=== PATIENT | male | born 1990 | race Caucasian/White ===

== ENCOUNTER 2017-01-07 22:30 | Emergency (ER) | payer SELFPAY ==
[~2017-01-07] VITALS: Ht 180.3 cm; Wt 59.0 kg
[2017-01-08] MEDS ORDERED: KETOROLAC 60 MG/2 ML VIAL (J1885) As Ordered ONE (00:07)
[2017-01-08] MEDS ORDERED: KETOROLAC 60 MG/2 ML VIAL (J1885) IM ONE (00:15)
[2017-01-08 00:35] VITALS: BP 120/67
[2017-01-08] MEDS ORDERED: ACETAMINOPHEN 325 MG/10.15 ML UDC PO ONE (00:45)
== END 2017-01-08 00:46 | disposition home or self-care (01) ==
LOC: M ED 23:33
DX: J02.9 Acute pharyngitis, unspecified (principal); B34.9 Viral infection, unspecified; F17.210 Nicotine dependence, cigarettes, uncomplicated
CPT/HCPCS: 96372; 99282; J1885

== ENCOUNTER 2017-05-30 10:16 | Emergency (ER) | payer MEDICAID, SELFPAY ==
[~2017-05-30] VITALS: Ht 180.3 cm; Wt 61.1 kg
[2017-05-30 10:16] VITALS: BP 100/66
[2017-05-30] MEDS ORDERED: CLEO300C2 PO (10:51)
[2017-05-30] MEDS ORDERED: NAPR500T PO (10:51)
[2017-05-30] MEDS ORDERED: CLINDAMYCIN 150 MG CAP PO ONE (11:00)
[2017-05-30] MEDS ORDERED: KETOROLAC 60 MG/2 ML VIAL (J1885) IM ONE (11:00)
== END 2017-05-30 11:32 | disposition home or self-care (01) ==
LOC: M ED 10:16
DX: L02.511 Cutaneous abscess of right hand (principal); Z72.0 Tobacco use
CPT/HCPCS: 96372; 99282; J1885

== ENCOUNTER 2017-12-20 02:57 | Emergency (ER) | payer SELFPAY | END 2017-12-20 04:16 | disposition left against medical advice (07) | LOC: M ED 02:57 | DX: Z53.29 Procedure and treatment not carried out because of patient's decision for other reasons (principal) ==

== ENCOUNTER 2019-07-13 19:18 | Emergency (ER) | payer SELFPAY ==
[~2019-07-13] VITALS: Ht 180.3 cm; Wt 61.4 kg
[~2019-07-13 19:18] MED LIST: CLEO300C2 PO; NAPR-837 PO
[2019-07-13] MEDS ORDERED: ALBUTEROL SULFATE 2.5 MG/0.5 ML INH NEB SOLN NEB ONE (20:00)
[2019-07-13] MEDS ORDERED: LIDO1CRE2 TOP (20:35)
[2019-07-13] MEDS ORDERED: IBUP-1022 PO (20:35)
[2019-07-13] MEDS ORDERED: PROAAER10 INH (20:38)
[2019-07-13] MEDS ORDERED: LIDOCAINE 5% (LIDODERM) PATCH TD ONE (20:45)
[2019-07-13] MEDS ORDERED: NORCO 5/325MG TABLET (BULK FOR ED) PO ONE (20:45)
[2019-07-13 20:55] VITALS: BP 115/59
[2019-07-13] MEDS ORDERED: **NOTE PATIENT COMMENT** MISC XX SCH (21:00)
--- NOTE | 2019-07-14 08:34 | REP ---
Bilateral ribs four views: I suspect there is a nondisplaced fracture of the left tenth rib anterolaterally. This should be correlated with clinical point tenderness. No other rib fractures or other rib abnormalities are identified. PA chest: There is no pneumothorax, hemothorax or pulmonary contusion. The lung yap are clear. Cardiac size is normal. The roldan, mediastinum, skeletal structures are unremarkable. The left tenth rib fractures, better visualized on the rib series. Electronically Signed by Jorgito Coelho MD 07/14/2019 08:25 A
[2019-07-14] MEDS ORDERED: **NOTE PATIENT COMMENT** MISC XX ONE (08:45)
== END 2019-07-13 20:57 | disposition home or self-care (01) ==
LOC: M ED 19:18
DX: S20.219A Contusion of unspecified front wall of thorax, initial encounter (principal); R07.89 Other chest pain; W50.0XXA Accidental hit or strike by another person, initial encounter; Y92.9 Unspecified place or not applicable; Y93.9 Activity, unspecified; Y99.9 Unspecified external cause status; J45.909 Unspecified asthma, uncomplicated; F17.200 Nicotine dependence, unspecified, uncomplicated

== ENCOUNTER 2019-08-12 14:48 | Emergency (ER) | payer SELFPAY ==
[~2019-08-12] VITALS: Ht 180.3 cm; Wt 61.4 kg
[~2019-08-12 14:48] MED LIST changes: +IBUP-1022 PO; +LIDO1CRE2 TOP; +PROAAER10 INH
[2019-08-12] MEDS ORDERED: ACETAMINOPHEN (14:55)
[2019-08-12] MEDS ORDERED: IBUP-1022 PO ×2 (16:04→16:31)
[2019-08-12] MEDS ORDERED: LIDO1CRE2 TOP (16:31)
[2019-08-12 16:42] VITALS: BP 122/65
== END 2019-08-12 16:42 | disposition home or self-care (01) ==
LOC: M ED 14:48
DX: S22.32XD Fracture of one rib, left side, subsequent encounter for fracture with routine healing (principal); X58.XXXD Exposure to other specified factors, subsequent encounter; Y92.9 Unspecified place or not applicable; Y93.9 Activity, unspecified; Y99.9 Unspecified external cause status; Z76.0 Encounter for issue of repeat prescription; J45.909 Unspecified asthma, uncomplicated; F17.200 Nicotine dependence, unspecified, uncomplicated; Z79.899 Other long term (current) drug therapy

== ENCOUNTER 2020-07-10 19:41 | Emergency (ER) | payer SELFPAY ==
[~2020-07-10] VITALS: Ht 180.3 cm; Wt 58.0 kg
[~2020-07-10 19:41] MED LIST changes: +ACETAMINOPHEN
[2020-07-10] MEDS ORDERED: FLUORESCEIN OPHTH 1 MG STRIP OU ONE (22:15)
[2020-07-10] MEDS ORDERED: TETRACAINE 0.5% OPHTH SOLN 4ML OU ONE (22:15)
[2020-07-10] MEDS ORDERED: CIPR0.3S6 OD (22:33)
[2020-07-10] MEDS ORDERED: BOOSTRIX/ADACEL VACCINE (DIPHTH/PERTUSS/ACELL/TETANUS) 0.5ML SYR IM ONE (22:45)
[2020-07-10] MEDS ORDERED: CIPROFLOXACIN 0.3% OPHTH SOLN 2.5ML OD ONE (22:45)
[2020-07-10 22:52] VITALS: BP 116/82
== END 2020-07-10 22:55 | disposition home or self-care (01) ==
LOC: M ED 19:41
DX: S05.91XA Unspecified injury of right eye and orbit, initial encounter (principal); T15.01XA Foreign body in cornea, right eye, initial encounter; X58.XXXA Exposure to other specified factors, initial encounter; Y92.89 Other specified places as the place of occurrence of the external cause; J45.909 Unspecified asthma, uncomplicated; F17.210 Nicotine dependence, cigarettes, uncomplicated

== ENCOUNTER 2020-12-23 21:43 | Emergency (ER) | payer SELFPAY ==
[~2020-12-23] VITALS: Ht 180.3 cm; Wt 60.0 kg
[2020-12-23 21:43] VITALS: BP 121/75
[~2020-12-23 21:43] MED LIST changes: +CIPR0.3S6 OD
== END 2020-12-24 00:12 | disposition left against medical advice (07) ==
LOC: M ED 21:43
DX: Z53.21 Procedure and treatment not carried out due to patient leaving prior to being seen by health care provider (principal)

== ENCOUNTER 2021-01-03 22:25 | Emergency (ER) | payer MEDICAID, SELFPAY ==
[~2021-01-03] VITALS: Ht 154.9 cm; Wt 58.9 kg
[2021-01-03] MEDS ORDERED: EPIN11.7 IH (22:37)
[2021-01-03] MEDS ORDERED: dexameTHASONE 20MG/5ML VIAL (J1100 PER 1MG) IV ONE (22:50)
[2021-01-03] MEDS ORDERED: NS 1,000 ML IV ONE (22:50)
[2021-01-03] MEDS: IPRATROPIUM 0.5MG/ALBUTEROL 2.5MG INH SOL UD 3ML (DUONEB) NEB PRN ×3 (22:57→23:07)
[2021-01-03 23:02] LABS: BASO % 0.3 % (0.0-1.0); EOS # 0.7 10^3/uL (0.0-0.5); EOS % 6.7 % (0.0-3.0); HEMATOCRIT 48.9 % (42.0-52.0); HEMOGLOBIN 16.8 g/dl (13.5-17.5); LYMPH # 2.7 10^3/uL (1.5-5.0); LYMPH % 25.2 % (24.0-44.0); MEAN CORPUSCULAR HEMOGLOBIN 29.9 pg (27.0-33.0); MEAN CORPUSCULAR HGB CONC 34.4 g/dl (32.0-36.5); MEAN CORPUSCULAR VOLUME 87.2 fl (80.0-96.0); MONO # 0.7 10^3/uL (0.0-0.8); MONO % 6.3 % (2.0-8.0); NEUTROPHILS # 6.6 10^3/uL (1.5-8.5); PLATELET COUNT, AUTOMATED 232 10^3/uL (150-450); RED BLOOD COUNT 5.61 10^6/uL (4.30-6.10); WHITE BLOOD COUNT 10.9 10^3/uL (4.0-10.0)
[2021-01-03] MEDS ORDERED: ALBUTEROL SULFATE 2.5 MG/0.5 ML INH NEB SOLN NEB SCH (23:30)
--- NOTE | 2021-01-03 23:36 | REPVR ---
PROCEDURE INFORMATION: Exam: XR Chest Exam date and time: 01/03/2021 11:05 PM Age: 30 years old Clinical indication: Cough and dyspnea; Additional info: Dyspnea/cough TECHNIQUE: Imaging protocol: XR of the chest. Views: 1 view. COMPARISON: CR Ribs Bilat w-PA CHEST 07/13/2019 7:38 PM FINDINGS: Lungs: Degree of lung inflation is normal. No evidence of pulmonary edema. No focal consolidation or parenchymal lung mass. Pleural spaces: No pleural effusion or pneumothorax. Heart/Mediastinum: Cardiac silhouette appears normal. No adenopathy or hilar mass. Bones/joints: Osseous structures show no concerning abnormality. IMPRESSION: No acute or focal cardiopulmonary process. Electronically signed by: Martir Kaufman On 01/03/2021 23:35:52 PM
[2021-01-03 23:48] LABS: ALBUMIN 4.3 GM/DL (3.2-5.2); ALT/SGPT 32 U/L (12-78); BILIRUBIN,DIRECT 0.1 MG/DL (0.0-0.2); BILIRUBIN,TOTAL 0.4 MG/DL (0.2-1.0); BLOOD UREA NITROGEN 14 MG/DL (7-18); CALCIUM LEVEL 9.1 MG/DL (8.5-10.1); CARBON DIOXIDE LEVEL 28 MEQ/L (21-32); CHLORIDE LEVEL 106 MEQ/L (98-107); GLOMERULAR FILTRATION RATE > 60.0 (>60); GLUCOSE, FASTING 124 MG/DL (70-100); POTASSIUM SERUM 4.1 MEQ/L (3.5-5.1); SODIUM LEVEL 140 MEQ/L (136-145)
[2021-01-04 00:24] LABS: RSV AMPLIFICATION NEGATIVE (NEGATIVE)
[2021-01-04] MEDS: ALBUTEROL SULFATE 2.5 MG/0.5 ML INH NEB SOLN NEB PRN ×2 (02:17→02:27)
[2021-01-04] MEDS ORDERED: FLUT44IN INH (04:13)
[2021-01-04] MEDS ORDERED: PROAAER10 INH (04:13)
[2021-01-04 04:25] VITALS: BP 115/65
--- NOTE | 2021-01-04 06:18 | ECGEPIP ---
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
== END 2021-01-04 04:30 | disposition home or self-care (01) ==
LOC: M ED 22:25
DX: J45.902 Unspecified asthma with status asthmaticus (principal); Z87.891 Personal history of nicotine dependence
CPT/HCPCS: 71045; 80048; 80076; 85025; 87631; 93005; 93041; 94760; 96361; 96374; 99284; J1100

== ENCOUNTER 2021-07-20 03:57 | Emergency (ER) | payer OTHER, MEDICAID ==
[~2021-07-20] VITALS: Ht 180.3 cm; Wt 61.4 kg
[~2021-07-20 03:57] MED LIST changes: +EPIN11.7 IH; +FLUT44IN INH
--- OUTSIDE RECORDS SUMMARY | 2021-07-20 04:03 | CCD ---
Author Author [facility] Organization [facility] Address Unknown Phone Unavailable Care Team Providers Care Molecular Biology Professor Name Role Phone Rooney, Crystal KEY PUNCH TEACHER Unavailable Unavailable Rooney, Crystal KEY PUNCH TEACHER Unavailable Unavailable Rooney, Crystal KEY PUNCH TEACHER Unavailable Unavailable Rooney, Crystal KEY PUNCH TEACHER Unavailable Unavailable Rooney, Crystal KEY PUNCH TEACHER Unavailable Unavailable Rooney, Crystal KEY PUNCH TEACHER Unavailable Unavailable Rooney, Crystal KEY PUNCH TEACHER Unavailable Unavailable Rooney, Crystal KEY PUNCH TEACHER Unavailable Unavailable Rooney, Crystal KEY PUNCH TEACHER Unavailable Unavailable Rooney, Crystal KEY PUNCH TEACHER Unavailable Unavailable Rooney, Crystal KEY PUNCH TEACHER Unavailable Unavailable Rooney, Crystal KEY PUNCH TEACHER Unavailable Unavailable Rooney, Crystal KEY PUNCH TEACHER Unavailable Unavailable Re-disclosure Warning The records that you are about to access may contain information from federally-assisted alcohol or drug abuse programs. If such information is present, then the following federally mandated warning applies: This information has been disclosed to you from records protected by federal confidentiality rules (42 CFR part 2). The federal rules prohibit you from making any further disclosure of this information unless further disclosure is expressly permitted by the written consent of the person to whom it pertains or as otherwise permitted by 42 CFR part 2. A general authorization for the release of medical or other information is NOT sufficient for this purpose. The Federal rules restrict any use of the information to criminally investigate or prosecute any alcohol or drug abuse patient.The records that you are about to access may contain highly sensitive health information, the redisclosure of which is protected by Article 27-F of the [facility] Public Health law. If you continue you may have access to information: Regarding HIV / AIDS; Provided by facilities licensed or operated by the [facility] Office of Mental Health; or Provided by the [facility] Office for People With Developmental Disabilities. If such information is present, then the following [facility] mandated warning applies: This information has been disclosed to you from confidential records which are protected by state law. State law prohibits you from making any further disclosure of this information without the specific written consent of the person to whom it pertains, or as otherwise permitted by law. Any unauthorized further disclosure in violation of state law may result in a fine or longterm sentence or both. A general authorization for the release of medical or other information is NOT sufficient authorization for further disc losure. Encounters Encounter Providers Location Date Indications Data Source(s ) Outpatient Attender: Crystal butt 12/15/2020 08:15:00 AM EDT [facility] ([facility] Medications Medication Brand Name Start Date Product Form Dose Route Admi nistrative Instructions Pharmacy Instructions Status Indications Reaction Description Data Source(s) Acetaminophen 325 MG / Hydrocodone Bitartrate 5 MG Ora l Tablet 5-325 mg HYDROCODONE/ACETAMINOPHEN 05/31/2021 12:00:00 AM EDT tablet 12 TAKE ONE TABLET BY MOUTH EVERY 6 HOURS NEEDED FOR PAIN MAXIMUM DAILY DOSE = 4 TAKE ONE TABLET BY MOUTH EVERY 6 HOURS NEEDED FOR PAIN MAXIMUM DAILY DOSE = 4 SOLD: 05/31/2021 [facility] Acetaminophen 325 MG / Hydrocodone Bitartrate 5 MG Ora l Tablet 5-325 mg HYDROCODONE/ACETAMINOPHEN 05/18/2021 12:00:00 AM EDT tablet 12 TAKE ONE TABLET BY MOUTH EVERY 6 HOURS NEEDED FOR PAIN MAXIMUM DAILY DOSE = 4 TAKE ONE TABLET BY MOUTH EVERY 6 HOURS NEEDED FOR PAIN MAXIMUM DAILY DOSE = 4 SOLD: 05/18/2021 [facility] 0.12 % 05/18/2021 12:00:00 AM EDT mouthwash 473 USE 15ML BY MOUTH FOR 30 SECONDS AND EXPECTORATE FOUR TIMES A DAY USE 15ML BY MOUTH FOR 30 SECONDS AND EXPECTORATE FOUR TIMES A DAY SOLD: 05/18/2021 [facility] 500 mg 05/05/2021 12:00:00 AM EDT capsule 21 TAKE ONE CAPSULE BY MOUTH THREE TIMES A DAY WITH FOOD TAKE ONE CAPSULE BY MOUTH THREE TIMES A DAY WITH FOOD SOLD: 05/05/2021 [facility] 600 mg 05/05/2021 12:00:00 AM EDT tablet 18 TAKE ONE TABLET BY MOUTH THREE TIMES A DAY NEEDED TAKE ONE TABLET BY MOUTH THREE TIMES A DAY NEEDED S OLD: 05/05/2021 [facility] 500 mg 03/30/2021 12:00:00 AM EDT capsule 21 TAKE ONE CAPSULE BY MOUTH THREE TIMES A DAY UNTIL GONE TAKE ONE CAPSULE BY MOUTH THREE TIMES A DAY UNTIL GONE SOLD: 03/31/2021 [facility] 600 mg 03/30/2021 12:00:00 AM EDT tablet 21 TAKE ONE TABLET BY MOUTH THREE TIMES A DAY WITH FOOD TAKE ONE TABLET BY MOUTH THREE TIMES A DAY WITH FOOD S OLD: 03/31/2021 [facility] 90 mcg/actuation 01/04/2021 12:00:00 AM EDT HFA aerosol inha ler 8 INHALE TWO PUFFS BY MOUTH EVERY 4 TO 6 HOURS NEEDED FOR WHEEZING INHALE TWO PUFFS BY MOUTH EVERY 4 TO 6 HOURS NEEDED FOR WHEEZING SOLD: 01/04/2021 [facility] 44 mcg/actuation 01/04/2021 12:00:00 AM EDT HFA aerosol inha ler 10 INHALE TWO PUFFS BY MOUTH TWICE A DAY INHALE TWO PUFFS BY MOUTH TWICE A DAY SOLD: 01/18/2021 [facility] 90 mcg/actuation 12/27/2020 12:00:00 AM EDT HFA aerosol inha ler 8 INHALE TWO PUFFS BY MOUTH EVERY 4 TO 6 HOURS NEEDED FOR SHORTNESS OF BREATH INHALE TWO PUFFS BY MOUTH EVERY 4 TO 6 HOURS NEEDED FOR SHORTNESS OF BREATH SOLD: 12/27/2020 [facility] 90 mcg/actuation 12/15/2020 12:00:00 AM EDT HFA aerosol inha ler 8 INHALE 1-2 PUFFS BY MOUTH EVERY 4-6 HOURS NEEDED FOR SHORTNESS OF BREATH INHALE 1-2 PUFFS BY MOUTH EVERY 4-6 HOURS NEEDED FOR SHORTNESS OF BREATH SOLD: 12/15/2020 [facility] 60 ACTUAT Albuterol 0.09 MG/ACTUAT Metered Dose Inhaler Albu terol Sulfate HFA 12/15/2020 12:00:00 AM EDT RESPIRATORY active [facility] ([facility]) Insurance Providers Payer name Policy type / Coverage type Policy ID Covered green party ID Covered green party's relationship to chatman Policy [place] [id number] SP [id number] E SELF PAY ONLY [id number] MEDICAID [id number] SP [id number] Problems, Conditions, and Diagnoses No Information Surgeries/Procedures No Information Results ID Date Data Source [id number] 01/03/2021 10:53:00 PM EDT [facility] Name Value Range Interpretation Code Description Data Odalys rce(s) Supporting Document(s) SARS coronavirus 2 RNA [Presence] in Res piratory specimen by JR with probe detection NEGATIVE [facility] This lab was ordered by [facility] a nd reported by [facility]. Procedure Social History No Information Vital Signs ID Date Data Source UNK Name Value Range Interpretation Code Description Data Source(s) Body height 71 [in_i] 71 [in_i] [facility] 5'11" Diastolic blood pressure 74 mm[Hg] 74 mm[Hg] [facility] Heart rate 91 /min 91 /min [facility]) Respiratory rate 18 /min 18 /min [facility] ( [facility]) Oxygen saturation in Arterial blood by Pulse oximetry 96 % 96 % [facility] ([facility]) Body temperature 97.7 [degF] 97.7 [degF] [facility] ([facility]) Body weight 135.00 [lb_av] 135.00 [lb_av] [facility] ([facility]) Body mass index (BMI) [Ratio] 18.8 kg/m2 18.8 k g/m2 [facility] ([facility]) Systolic blood pressure 102 mm[Hg] 102 mm[Hg] [facility] ([facility])
--- OUTSIDE RECORDS SUMMARY | 2021-07-20 06:06 | CCD ---
Author Author [facility] Organization [facility] Address Unknown Phone Unavailable Care Team Providers Care Driver Engineer Name Role Phone Rooney, Crystal OPERATIONS PLANT ATTENDANT Unavailable Unavailable Rooney, Crystal OPERATIONS PLANT ATTENDANT Unavailable Unavailable Rooney, Crystal OPERATIONS PLANT ATTENDANT Unavailable Unavailable Rooney, Crystal OPERATIONS PLANT ATTENDANT Unavailable Unavailable Rooney, Crystal OPERATIONS PLANT ATTENDANT Unavailable Unavailable Rooney, Crystal OPERATIONS PLANT ATTENDANT Unavailable Unavailable Rooney, Crystal OPERATIONS PLANT ATTENDANT Unavailable Unavailable Rooney, Crystal OPERATIONS PLANT ATTENDANT Unavailable Unavailable Rooney, Crystal OPERATIONS PLANT ATTENDANT Unavailable Unavailable Rooney, Crystal OPERATIONS PLANT ATTENDANT Unavailable Unavailable Rooney, Crystal OPERATIONS PLANT ATTENDANT Unavailable Unavailable Rooney, Crystal OPERATIONS PLANT ATTENDANT Unavailable Unavailable Rooney, Crystal OPERATIONS PLANT ATTENDANT Unavailable Unavailable Re-disclosure Warning The records that [...] is protected by Article 27-F of the [facility] Public Health law. If you continue you may have access to information: Regarding HIV / AIDS; Provided by facilities licensed or operated by the [facility] Office of Mental Health; or Provided by the [facility] Office for People With Developmental Disabilities. If such information is present, then the following [facility] mandated warning applies: This information has been [...] law may result in a fine or usp sentence or both. A general authorization for the release of medical or other information is NOT sufficient authorization for further disc losure. Encounters Encounter Providers Location Date Indications Data Source(s ) Outpatient Attender: Crystal butt 12/15/2020 08:15:00 AM EDT [facility] ([facility] Medications Medication Brand Name Start Date Product [...] 12/15/2020 12:00:00 AM EDT RESPIRATORY active [facility] ([facility]) Insurance Providers Payer name Policy type / Coverage type Policy ID Covered democrat ID Covered democrat's relationship to chatman Policy [place] Information [place] [id number] SP [id number] E SELF PAY ONLY [id number] MEDICAID [id number] SP [id number] Problems, Conditions, and Diagnoses No Information Surgeries/Procedures No Information Results ID Date Data Source [id number] 01/03/2021 10:53:00 PM EDT [facility] Name Value Range Interpretation Code Description Data Odalys rce(s) Supporting Document(s) SARS coronavirus 2 RNA [Presence] in Res piratory specimen by JR with probe detection NEGATIVE [facility] This lab was ordered by [facility] a nd reported by [facility]. Procedure Social History No Information Vital Signs ID Date Data Source UNK Name Value Range Interpretation Code Description Data Source(s) Body height 71 [in_i] 71 [in_i] [facility] 5'11" Diastolic blood pressure 74 mm[Hg] 74 mm[Hg] [facility] Heart rate 91 /min 91 /min [facility]) Respiratory rate 18 /min 18 /min [facility]) Oxygen saturation in Arterial blood by Pulse oximetry 96 % 96 % [facility] ([facility]) Body temperature 97.7 [degF] 97.7 [degF] [facility] ([facility]) Body weight 135.00 [lb_av] 135.00 [lb_av] [facility] ([facility]) Body mass index (BMI) [Ratio] 18.8 kg/m2 18.8 k g/m2 [facility] ([facility]) Systolic blood pressure 102 mm[Hg] 102 mm[Hg] [facility] ([facility])
[2021-07-20] MEDS ORDERED: predniSONE 20 MG TAB PO ONE (06:20)
[2021-07-20] MEDS ORDERED: BENZONATATE 100MG CAPSULE PO ONE (06:25)
[2021-07-20] MEDS: COMBIVENT RESPIMAT 100-20MCG INHALER 4GM INH SCH ×2 (06:28→06:50)
[2021-07-20] MEDS ORDERED: PRED20TA PO (08:06)
[2021-07-20] MEDS ORDERED: ALB2.5NEB NEB (08:06)
[2021-07-20] MEDS ORDERED: FLUT11IN INH (08:06)
[2021-07-20] MEDS ORDERED: BENZ200C70 PO (08:29)
[2021-07-20] MEDS ORDERED: IBUP-1022 PO (08:29)
[2021-07-20 08:46] VITALS: BP 120/73
--- NOTE | 2021-07-21 08:55 | REP ---
INDICATION: wheezing, cough, sob COMPARISON: 01/03/2021 TECHNIQUE: Portable AP view of the chest FINDINGS: The mediastinum and cardiac silhouette are stable and within normal limits for portable technique. The lung yap are clear without acute consolidation, effusion, or pneumothorax. Skeletal structures are intact. IMPRESSION: No acute cardiopulmonary process appreciated. Note: Examination originally reported by overnight service. <Electronically signed by Haris Flores > 07/21/21 [id number]
== END 2021-07-20 08:50 | disposition home or self-care (01) ==
LOC: M ED 03:57
DX: J45.901 Unspecified asthma with (acute) exacerbation (principal); Z87.891 Personal history of nicotine dependence
CPT/HCPCS: 71045; 94640; 94760; 99284; J7512

== ENCOUNTER 2022-01-17 03:43 | Emergency (ER) | payer OTHER, MEDICAID ==
[~2022-01-17] VITALS: Ht 180.3 cm; Wt 59.1 kg
[2022-01-17 03:43] VITALS: BP 117/69
[~2022-01-17 03:43] MED LIST changes: +ALB2.5NEB NEB; +BENZ200C70 PO; +FLUT11IN INH; +PRED20TA PO
== END 2022-01-17 04:30 | disposition left against medical advice (07) ==
LOC: M ED 03:43
DX: Z53.21 Procedure and treatment not carried out due to patient leaving prior to being seen by health care provider (principal)

== ENCOUNTER 2022-06-08 03:03 | Emergency (ER) | payer MEDICAID, OTHER ==
[~2022-06-08] VITALS: Ht 180.3 cm; Wt 60.9 kg
[2022-06-08] MEDS ORDERED: MAG SULF 1GM/100ML (MAG RUN) 1 GM in IV 1 EA IV ONE (04:05)
[2022-06-08] MEDS ORDERED: methylPREDNISolone 125MG 2ML VIAL IV ONE (04:05)
[2022-06-08] MEDS ORDERED: PRED20TA PO (07:23)
[2022-06-08 07:35] VITALS: BP 133/78
== END 2022-06-08 07:40 | disposition home or self-care (01) ==
LOC: M ED 03:03
DX: J45.901 Unspecified asthma with (acute) exacerbation (principal); F90.9 Attention-deficit hyperactivity disorder, unspecified type
CPT/HCPCS: 87486; 87581; 87633; 87798; 94760; 96365; 96375; 99284; J2930; J3475

== ENCOUNTER → 2022-08-02 | Outpatient (REF) | payer OTHER ==
[2022-08-02 19:02] LABS: BASO % 0.4 % (0.0-1.0); EOS # 0.8 10^3/uL (0.0-0.5); EOS % 7.8 % (0.0-3.0); HEMATOCRIT 44.3 % (42.0-52.0); HEMOGLOBIN 15.6 g/dl (13.5-17.5); LYMPH # 1.8 10^3/uL (1.5-5.0); LYMPH % 18.8 % (24.0-44.0); MEAN CORPUSCULAR HEMOGLOBIN 30.8 pg (27.0-33.0); MEAN CORPUSCULAR HGB CONC 35.2 g/dl (32.0-36.5); MEAN CORPUSCULAR VOLUME 87.5 fl (80.0-96.0); MONO # 0.9 10^3/uL (0.0-0.8); MONO % 9.6 % (2.0-8.0); NEUTROPHILS # 6.2 10^3/uL (1.5-8.5); PLATELET COUNT, AUTOMATED 275 10^3/uL (150-450); RED BLOOD COUNT 5.06 10^6/uL (4.30-6.10); WHITE BLOOD COUNT 9.8 10^3/uL (4.0-10.0)
[2022-08-02 19:22] LABS: CHLORIDE LEVEL 104 MMOL/L (98-107); POTASSIUM SERUM 3.9 MMOL/L (3.5-5.1); SODIUM LEVEL 138 MMOL/L (136-145)
[2022-08-02 19:23] LABS: ALBUMIN 3.9 G/DL (3.2-5.2); CARBON DIOXIDE LEVEL 23 MMOL/L (20-31)
[2022-08-02 19:26] LABS: BLOOD UREA NITROGEN 16 MG/DL (9-23); FREE T4 1.18 NG/DL (0.89-1.76); TRIGLYCERIDES LEVEL 66 MG/DL (<150)
[2022-08-02 19:28] LABS: CALCIUM LEVEL 9.1 MG/DL (8.5-10.1); GLUCOSE, FASTING 104 MG/DL (60-100)
[2022-08-02 19:29] LABS: ALKALINE PHOSPHATASE 94 U/L (46-116); THYROID STIMULATING HORMONE 0.909 uIU/ML (0.55-4.78)
[2022-08-02 19:30] LABS: ALT/SGPT 21 U/L (7.0-40); AST/SGOT 31 U/L (<34); BILIRUBIN,TOTAL 0.5 MG/DL (0.3-1.2); CHOLESTEROL LEVEL 140 MG/DL (<200); CHOLESTEROL RISK RATIO 2.15 (<5); GLOMERULAR FILTRATION RATE > 60.0 (>60); HDL CHOLESTEROL 64.9 MG/DL (>40); LDL CHOLESTEROL 61.9 MG/DL (<100); NON-HDL-C 75 MG/DL
[2022-08-02 19:38] LABS: HEMOGLOBIN A1c 5.4 % (4.0-6.0)
== END ==
LOC: M LAB REF 17:08
PROVIDERS: ATTEND Nurse Practitioner Family
DX: Z13.228 Encounter for screening for other metabolic disorders (principal)

== ENCOUNTER 2024-02-08 14:13 | Emergency (ER) | payer OTHER ==
[~2024-02-08] VITALS: Ht 182.9 cm; Wt 65.9 kg
[~2024-02-08 14:13] MED LIST changes: +CIPR0.3S37 OD; -CIPR0.3S6 OD; -FLUT11IN INH; +FLUT12AE6 INH
[2024-02-08 14:14] VITALS: BP 129/73; TEMP 97; O2SAT 99
== END 2024-02-08 14:35 | disposition left against medical advice (07) ==
LOC: M ED 14:13
DX: Z53.21 Procedure and treatment not carried out due to patient leaving prior to being seen by health care provider (principal)

== ENCOUNTER → 2024-04-23 | Outpatient (REF) | payer OTHER ==
[2024-04-24 12:24] LABS: BASO # 0.1 10^3/uL (0.0-0.2); BASO % 0.6 % (0.0-1.0); EOS # 0.7 10^3/uL (0.0-0.5); EOS % 8.4 % (0.0-3.0); HEMATOCRIT 42.3 % (42.0-52.0); HEMOGLOBIN 14.4 g/dl (13.5-17.5); LYMPH # 2.4 10^3/uL (1.5-5.0); LYMPH % 27.8 % (24.0-44.0); MEAN CORPUSCULAR HEMOGLOBIN 28.9 pg (27.0-33.0); MEAN CORPUSCULAR VOLUME 84.9 fl (80.0-96.0); MONO # 0.5 10^3/uL (0.0-0.8); NEUTROPHILS # 4.8 10^3/uL (1.5-8.5); NEUTROPHILS % 55.7 % (36.0-66.0); PLATELET COUNT, AUTOMATED 269 10^3/uL (150-450); RED BLOOD COUNT 4.98 10^6/uL (4.30-6.10); WHITE BLOOD COUNT 8.6 10^3/uL (4.0-10.0)
[2024-04-24 12:26] LABS: ALBUMIN 4.1 G/DL (3.2-5.2); ALKALINE PHOSPHATASE 97 U/L (46-116); ALT/SGPT 28 U/L (7.0-40); AST/SGOT 23 U/L (<34); BILIRUBIN,TOTAL 0.2 MG/DL (0.3-1.2); BLOOD UREA NITROGEN 16 MG/DL (9-23); CALCIUM LEVEL 9.2 MG/DL (8.5-10.1); CARBON DIOXIDE LEVEL 29 MMOL/L (20-31); CHLORIDE LEVEL 104 MMOL/L (98-107); CHOLESTEROL LEVEL 158 MG/DL (<200); CHOLESTEROL RISK RATIO 3.03 (<5); CREATININE FOR GFR 0.86 MG/DL (0.70-1.30); GLOMERULAR FILTRATION RATE > 60.0 (>60); GLUCOSE, FASTING 87 MG/DL (60-100); LDL CHOLESTEROL 78.8 MG/DL (<100); MAGNESIUM LEVEL 2.1 MG/DL (1.8-2.4); SODIUM LEVEL 136 MMOL/L (136-145); THYROID STIMULATING HORMONE 0.606 uIU/ML (0.55-4.78); TRIGLYCERIDES LEVEL 136 MG/DL (<150)
[2024-04-24 12:28] LABS: TOTAL 25(OH) VITAMIN D 52.9 NG/ML (20.0-100.0)
[2024-04-24 12:38] LABS: HEMOGLOBIN A1c 5.6 % (4.0-6.0)
== END ==
LOC: M LAB REF 11:25
PROVIDERS: ATTEND Nurse Practitioner Family
DX: E66.3 Overweight (principal); E55.9 Vitamin D deficiency, unspecified

== ENCOUNTER → 2024-05-14 | Outpatient (REF) | payer OTHER | LOC: M LAB REF 12:36 | PROVIDERS: ATTEND Nurse Practitioner Family | DX: B34.9 Viral infection, unspecified (principal) ==